=== PATIENT | male | born 1990 | race Caucasian/White ===

== ENCOUNTER 2020-02-19 08:17 | Outpatient (REF) | payer OTHER, SELFPAY ==
[2020-02-19 08:39] LABS: COVID-19 Test Negative (Negative); IDNOW Serial# 55D5AD1C
== END 2020-02-19 08:18 | disposition home or self-care (01) ==
LOC: HO.LAB 08:17
PROVIDERS: Visit Provider Internal Medicine
DX: Z20.828 Contact with and (suspected) exposure to other viral communicable diseases (principal)
CPT/HCPCS: 87635; C9803

== ENCOUNTER 2020-03-30 06:40 | Outpatient (REF) | payer OTHER, SELFPAY | END 2020-03-30 06:41 | disposition home or self-care (01) | LOC: HO.LAB 06:40 | PROVIDERS: PCP Family Medicine; Visit Provider Internal Medicine | DX: Z20.828 Contact with and (suspected) exposure to other viral communicable diseases (principal) | CPT/HCPCS: C9803; U0003 ==

== ENCOUNTER 2025-02-25 23:20 | Emergency (ER) | payer OTHER, SELFPAY ==
[2025-02-25 23:23] VITALS: BP 143/78; PULSE 92; RESP 16; TEMP 36.6; O2SAT 98; BMI 27.1
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
--- OUTSIDE RECORDS SUMMARY | 2025-02-26 00:30 | XMS_ITS | Clinical Summary ---
Author Organization [facility] Address [address] [address] Phone Care Team Providers Care Evp Managing Director Name Role Phone Unavailable Primary Care Provider Unavailabl e Allergies No known active allergies Medications ibuprofen (ADVIL,MOTRIN) 400 MG tablet Take 400 mg by mouth every 6 (six) hours as needed for pain (specific location in comments). Active acetaminophen (TYLENOL) 500 MG tablet Take 500 mg by mouth. Active azithromycin (ZITHROMAX) 250 MG tabletIndication s:STI (sexually transmitted infection) Take 4 tablets (1,000 mg total) by mouth once for 1 dose. 4 tablet 2 Active Active Problems Problem Noted Date Diagnosed Date Neck mass 05/11/2020 Assessment & Plan (05/11/2020 10:51 AM EST): Howard presents for a mass noted along the right side of his neck which presented itself about a week and a half ago. This is too high to be a thyroid gland however I do want to rule out with the above lab work and I will update him with the results. I will get an image study of this with an ultrasound thus this was ordered today and I will update him with the results. He will use a warm compress to the site twice a day for 10 minutes morning and night to see if this will help. He will call if this gets worse/bigger. I did advise him to try not to palpate the site to frequent. He will call if there is any other issues or concerns. He understands and agrees. Immunizations Immunization Administration Dates Next Due DTaP 01/31/1996,1991,08/12,1991 MMR 01/31/1996,07/26/1992 Meningococcal MCV4P 05/30/2005 Polio - OPV 01/31/1996, 3,1991,06/23 Td (adult) 5 Lf Tetanus Toxo id, PF, Adsorbed 08/18/2002 Tdap 10/02/2018,07/17/2007 Varicella 07/17/2007,12/31/1994 Social History Tobacco Use Types Packs/Day Years Used Date Smoking Tobacco: Never Smokeless Tobacco: Never Alcohol Use Standard Drinks/Week Comments Yes 20 (1 standard drink = 0.6 oz pu re alcohol) week Education Answer Date Recorded Are you interested in more education? Not on delroy e 07/27/2022 Are you concerned about learning? Not on file 07/27/2022 No 07/27/2022 No 07/27/2022 Digital Access Answer Date Recorded No 08/24/2022 No 08/24/2022 Reliable internet access at home? Not on file 08/24/2022 Device with a working camera? Not on file Sex and Gender Information Value Date Recorded Sex Assigned at Male 10/02/2018 9:40 AM EDT Legal Sex Male 9:00 PM EDT Gender Identity Male 10/02/2018 9:40 AM EDT Sexual Orientation Not on file Last Filed Vital Signs Vital Sign Reading Time Taken Comments Blood Pressure 116/78 06/01/2020 9:51 AM EST Pulse 72 06/01/2020 9:51 AM EST Temperature 36.9 C (98.5 F) 06/01/2020 9:51 AM EST Respiratory Rate 18 10/02/2018 9:35 AM EDT Oxygen Saturation 98% 06/01/2020 9:51 AM EST Inhaled Oxygen Concentration - - Weight 74.2 kg (163 lb 9.6 oz) 06/01/2020 9:51 A M EST Height 184.2 cm (6' 0.52 ) 06/01/2020 9:51 AM ES T Body Mass Index 21.87 06/01/2020 9:51 AM EST Plan of Treatment Health Maintenance Due Date Last Done Comments DEPRESSION SCREENING 2003 HEPATITIS C SCREENING 2009 HIV ONE-TIME SCREENING (18-6 5 YEARS) 2009 INFLUENZA VACCINE (#1) 2024 COVID-19 VACCINE (2024-2 6 season) 2024 Adult Td,Tdap Booster 10/02/2028 10/02/2018 , 07/17/2007, 08/18/2002 MENINGOCOCCAL VACCINES (ACWY) Aged Out 05/30/2005 No longer eligible based on patient's age to complete this topic SMOKING STATUS SCREENING (On ce After 26 Yrs) Completed 06/01/2020 HEPATITIS A VACCINES Aged Out No long er eligible based on patient's age to complete this topic HIB VACCINES Aged Out No longer eligi ble based on patient's age to complete this topic MENINGOCOCCAL VACCINES (B) Aged Out N o longer eligible based on patient's age to complete this topic PNEUMOCOCCAL VACCINES (0-49 years) Aged Out No longer eligible b ased on patient's age to complete this topic Medical Devices Not on [place] [id number] [facility] O HMO O O O O O Additional Source Comments The information contained in this document represents components of the legal health record. It is not the complete legal health record.[facility]
--- NOTE | 2025-02-26 00:42 | PC.NURSE ---
pt A/O x4, calm and cooperative, ambulating independently with a steady gait, neuros intact, speech even and clear.
[2025-02-26] MEDS: Diphth,Pertus(ACell),Tet Adult 0.5 ML SYRINGE IM (00:54)
[2025-02-26] MEDS: Lidocaine HCl 1%/Epi 1:100,000 10 ML VIAL INFILTRATI (00:54)
[2025-02-26 01:10] VITALS: BP 125/83; PULSE 74; RESP 16; TEMP 36.4; O2SAT 96
--- NOTE | 2025-02-26 01:11 | PC.NURSE ---
pt educated on need to return to ED: signs of infection, worsening head wound with change in symptoms such as vision changes, nausea, confusion, etc. pt aware and verbalizes understanding.
[2025-02-26 01:13] VITALS: BP 125/83; PULSE 74; RESP 16; TEMP 36.4; O2SAT 96
== END 2025-02-26 01:14 | disposition home or self-care (01) ==
PROVIDERS: Emergency Provider Emergency Medicine
DX: S01.81XA Laceration without foreign body of other part of head, initial encounter (principal); S01.312A Laceration without foreign body of left ear, initial encounter; R51.9 Headache, unspecified; M54.2 Cervicalgia; V86.65XA Passenger of 3- or 4- wheeled all-terrain vehicle (ATV) injured in nontraffic accident, initial encounter; Y93.9 Activity, unspecified; Y92.9 Unspecified place or not applicable; Y99.8 Other external cause status; Z23 Encounter for immunization; Z79.899 Other long term (current) drug therapy
CPT/HCPCS: 12013; 90471; 90715; 99283; 99284; J2004